=== PATIENT | male | born 1950 | race Caucasian/White ===

== ENCOUNTER 2020-08-06 16:21 | Observation (INO) ==
[2020-08-06] MEDS ORDERED: Naloxone 0.4 MG/ML INJ IVP PRN (18:08)
[2020-08-06] MEDS ORDERED: *HR* Dextrose 50 % in Water (Vial) 50 ML VIAL IVP PRN (18:10)
[2020-08-06] MEDS ORDERED: Dextrose Gel 15 GM/37.5 ML TUBE PO PRN ×2 (18:10)
[2020-08-06] MEDS ORDERED: D5% in Water 1,000 ML IVC PRN (18:10)
[2020-08-06] MEDS ORDERED: Perflutren Lipid Microsphere 1.3 ML in 0.9 % Sodium Chloride 8.7 ML IVP PRN (18:11)
[2020-08-06] MEDS ORDERED: 0.9 % Sodium Chloride 500 ML IVC SCH (18:30)
[2020-08-06] MEDS ORDERED: MOM Conc 10 ML UD.LIQ PO PRN (20:48)
[2020-08-06] MEDS: rOPINIRole 0.25 MG TABLET PO SCH (23:32)
[2020-08-06] MEDS: Famotidine 20 MG TABLET PO SCH (23:32)
[2020-08-06] MEDS: Gabapentin 100 MG CAPSULE PO SCH (23:32)
[2020-08-06] MEDS: Aspirin Enteric Coated 81 MG Tablet PO SCH (23:32)
[2020-08-07 02:58] LABS: Basophils % 0.4 %; Eosinophils # 0.1 K/mcL (0.0-0.6); Eosinophils % 1.5 %; Hematocrit 34.3 % (37.5-50.1); Hemoglobin 11.1 g/dL (12.9-16.9); Immature Granulocytes % 0.2 % (0-4); Lymphocytes # 2.1 K/mcL (0.6-4.6); Lymphocytes % 38.9 %; Mean Corpuscular HGB Conc 32.4 g/dL (31.6-35.5); Mean Corpuscular Hemoglobin 30.1 pg (28.0-33.3); Mean Platelet Volume 8.8 fL (9.4-12.4); Monocytes # 0.5 K/mcL (0.0-1.3); Monocytes % 9.8 %; Neutrophils # 2.6 K/mcL (1.6-8.9); Platelet Count 155 K/mcL (140-400); Red Blood Count 3.69 M/mcL (4.19-5.50); Segmented Neutrophils % 49.2 %; White Blood Count 5.3 K/mcL (4.3-11.1)
[2020-08-07 04:47] LABS: BUN/Creatinine Ratio 16 (6-26); Blood Urea Nitrogen 21 mg/dL (8-23); Calcium 8.9 mg/dL (8.6-10.3); Carbon Dioxide 21 mEq/L (23-29); Chloride 108 mEq/L (98-107); Glucose 122 mg/dL (70-105); Osmolality,Calculated 294 (280-300); Potassium 4.3 mEq/L (3.5-5.1); Sodium 140 mEq/L (136-145); eGFR For African Americans > 60 (> 60); eGFR For Non-African Americans 55 (> 60)
[2020-08-07 05:32] LABS: Troponin I 0.03 ng/mL (< 0.04)
[2020-08-07] MEDS: Insulin LISPRO 300 UNITS/3 ML VIAL SUBQ SCH ×3 (07:25→16:06)
[2020-08-07] MEDS: lisinopriL 5 MG TABLET PO SCH (08:44)
[2020-08-07] MEDS: Famotidine 20 MG TABLET PO SCH ×2 (08:45→20:15)
[2020-08-07] MEDS: Psyllium 1 PACKET POWD.PACK PO SCH (08:45)
[2020-08-07] MEDS: rOPINIRole 0.25 MG TABLET PO SCH ×2 (08:45→20:15)
[2020-08-07] MEDS: Cyanocobalamin (B-12) 1,000 MCG TABLET PO SCH (08:45)
[2020-08-07] MEDS: Gabapentin 100 MG CAPSULE PO SCH ×2 (08:45→20:15)
[2020-08-07 17:05] LABS: Amphetamine Screen,Urine Negative ng/mL (Cutoff=1000); Barbiturate Screen,Urine Negative ng/mL (Cutoff=200); Benzodiazepines Screen,Urine Negative ng/mL (Cutoff=200); Cannabinoid Screen,Urine Negative ng/mL (Cutoff = 50); Cocaine Screen,Urine Negative ng/mL (Cutoff= 300); Opiate Screen,Urine Negative ng/mL (Cutoff=300); Phencyclidine Screen,Urine Negative ng/mL (Cutoff=25)
[2020-08-07] MEDS: Aspirin Enteric Coated 81 MG Tablet PO SCH (20:15)
[2020-08-08] MEDS: Insulin LISPRO 300 UNITS/3 ML VIAL SUBQ SCH ×3 (08:10→16:56)
[2020-08-08] MEDS: Cyanocobalamin (B-12) 1,000 MCG TABLET PO SCH (08:15)
[2020-08-08] MEDS: Gabapentin 100 MG CAPSULE PO SCH ×2 (08:15→19:49)
[2020-08-08] MEDS: Famotidine 20 MG TABLET PO SCH ×2 (08:15→19:49)
[2020-08-08] MEDS: Psyllium 1 PACKET POWD.PACK PO SCH (08:16)
[2020-08-08] MEDS: rOPINIRole 0.25 MG TABLET PO SCH ×2 (08:16→19:49)
[2020-08-08] MEDS: lisinopriL 5 MG TABLET PO SCH (08:16)
[2020-08-08] MEDS: Aspirin Enteric Coated 81 MG Tablet PO SCH (19:49)
[2020-08-09] MEDS: Insulin LISPRO 300 UNITS/3 ML VIAL SUBQ SCH ×3 (07:32→16:52)
[2020-08-09] MEDS: rOPINIRole 0.25 MG TABLET PO SCH ×2 (07:43→19:37)
[2020-08-09] MEDS: Cyanocobalamin (B-12) 1,000 MCG TABLET PO SCH (07:43)
[2020-08-09] MEDS: Psyllium 1 PACKET POWD.PACK PO SCH (07:44)
[2020-08-09] MEDS: Gabapentin 100 MG CAPSULE PO SCH ×2 (07:44→19:37)
[2020-08-09] MEDS: lisinopriL 5 MG TABLET PO SCH (07:44)
[2020-08-09] MEDS: Famotidine 20 MG TABLET PO SCH ×2 (07:44→19:37)
[2020-08-09] MEDS: Aspirin Enteric Coated 81 MG Tablet PO SCH (19:37)
[2020-08-10] MEDS: Insulin LISPRO 300 UNITS/3 ML VIAL SUBQ SCH ×3 (07:14→16:18)
[2020-08-10] MEDS: Famotidine 20 MG TABLET PO SCH ×2 (07:48→19:54)
[2020-08-10] MEDS: lisinopriL 5 MG TABLET PO SCH (07:49)
[2020-08-10] MEDS: rOPINIRole 0.25 MG TABLET PO SCH ×2 (07:49→19:54)
[2020-08-10] MEDS: Gabapentin 100 MG CAPSULE PO SCH ×2 (07:50→19:54)
[2020-08-10] MEDS: Cyanocobalamin (B-12) 1,000 MCG TABLET PO SCH (07:50)
[2020-08-10] MEDS: Psyllium 1 PACKET POWD.PACK PO SCH (07:50)
[2020-08-10 15:05] LABS: Adenovirus Not Detected (Not Detect); Coronavirus 229E Not Detected (Not Detect); Coronavirus HKU1 Not Detected (Not Detect); Coronavirus NL63 Not Detected (Not Detect); Coronavirus OC43 Not Detected (Not Detect); Human Metapneumovirus Not Detected (Not Detect); Human Rhinovirus/Enterovirus Not Detected (Not Detect); Influenza A Subtype 2009 H1 Not Detected (Not Detect); SARS-CoV-2 Not Detected (Not Detect)
[2020-08-10 15:06] LABS: Bordetella Pertussis Not Detected (Not Detect); Chlamydophila pneumoniae Not Detected (Not Detect); Influenza B Not Detected (Not Detect); Mycoplasma pneumoniae Not Detected (Not Detect); Parainfluenza Virus 1 Not Detected (Not Detect); Parainfluenza Virus 2 Not Detected (Not Detect); Parainfluenza Virus 3 Not Detected (Not Detect); Parainfluenza Virus 4 Not Detected (Not Detect); Respiratory Syncytial Virus Not Detected (Not Detect)
[2020-08-10] MEDS: Aspirin Enteric Coated 81 MG Tablet PO SCH (19:54)
[2020-08-11 06:59] VITALS: BP 120/70
[2020-08-11] MEDS: Famotidine 20 MG TABLET PO SCH (09:02)
[2020-08-11] MEDS: rOPINIRole 0.25 MG TABLET PO SCH (09:02)
[2020-08-11] MEDS: Cyanocobalamin (B-12) 1,000 MCG TABLET PO SCH (09:02)
[2020-08-11] MEDS: Gabapentin 100 MG CAPSULE PO SCH (09:02)
[2020-08-11] MEDS: lisinopriL 5 MG TABLET PO SCH (09:02)
[2020-08-11] MEDS: Psyllium 1 PACKET POWD.PACK PO SCH (09:03)
[2020-08-11] MEDS: Insulin LISPRO 300 UNITS/3 ML VIAL SUBQ SCH (09:03)
[2020-08-11] MEDS ORDERED: carvediloL 6.25 MG TABLET PO SCH (17:00)
== END 2020-08-11 11:01 ==
LOC: 3BNU 16:21 → EMEROOARM 16:21 → SUATTDRO 17:42 → 3BNU 18:17
PROVIDERS: ADMIT Internal Medicine; ATTEND Registered Nurse

== ENCOUNTER 2021-01-27 17:13 | Inpatient (IN) ==
[2021-01-27] MEDS ORDERED: Isovue-370 500 ML BOTTLE IVP ONE (17:24)
[2021-01-27 17:45] LABS: Hematocrit 39.5 % (37.5-50.1); Hemoglobin 12.9 g/dL (12.9-16.9); Mean Corpuscular HGB Conc 32.7 g/dL (31.6-35.5); Mean Corpuscular Hemoglobin 30.4 pg (28.0-33.3); Mean Corpuscular Volume 93.2 fL (83.0-100.0); Mean Platelet Volume 8.8 fL (9.4-12.4); Platelet Count 212 K/mcL (140-400); Red Blood Count 4.24 M/mcL (4.19-5.50); Red Cell Distribution Width 12.8 % (11.5-14.5); White Blood Count 6.5 K/mcL (4.3-11.1)
[2021-01-27 17:54] LABS: INR 1.2; Prothrombin Time 13.1 Seconds (9.4-12.1)
[2021-01-27 17:57] LABS: Activated Partial Thrombo Time 41.5 Seconds (26.0-36.0)
[2021-01-27 18:21] LABS: BUN/Creatinine Ratio 17 (6-26); Blood Urea Nitrogen 21 mg/dL (8-23); Calcium 8.9 mg/dL (8.6-10.3); Carbon Dioxide 29 mEq/L (23-29); Chloride 101 mEq/L (98-107); Creatine Kinase 38 Units/L (30-223); Ethanol < 10 mg/dL (Less than 10); Glucose 141 mg/dL (70-105); Osmolality,Calculated 285 (280-300); Potassium 4.5 mEq/L (3.5-5.1); Sodium 135 mEq/L (136-145); eGFR For African Americans > 60 (> 60); eGFR For Non-African Americans 57 (> 60)
[2021-01-27 19:26] LABS: Troponin I < 0.03 ng/mL (< 0.04)
[2021-01-27 19:27] LABS: Influenza A PCR Negative (Negative); Influenza B PCR Negative (Negative); Resp. Syncytial Virus PCR Negative (Negative)
[2021-01-27 19:28] LABS: SARS-CoV-2 by PCR (In House) Negative (Negative)
[2021-01-27 19:37] LABS: Bilirubin,Urine Negative (Negative); Blood,Urine Small (Negative); Clarity,Urine Clear (Clear); Color,Urine Yellow (Yellow); Glucose,Urine (UA) Normal (Normal); Ketones,Urine Negative (Negative); Leukocyte Esterase,Urine Negative (Negative); Nitrite,Urine Negative (Negative); Protein,Urine Negative (Neg-Trace); Urobilinogen,Urine Normal (Normal)
[2021-01-27 19:42] LABS: Mucus,Urine Few per lpf (None-Few); RBC,Urine 0-3 per hpf (0-3); WBC,Urine 0-3 per hpf (0-3)
[2021-01-27] MEDS ORDERED: Naloxone 0.4 MG/ML INJ IVP PRN (19:52)
[2021-01-27] MEDS ORDERED: Gadolinium Contrast Agent (WT Based) IV PRN (19:57)
[2021-01-27] MEDS ORDERED: 0.9 % Sodium Chloride 1,000 ML IVC SCH (20:00)
[2021-01-27] MEDS ORDERED: *HR* OxyCODONE Immed Rel 5 MG TABLET PO PRN (20:04)
[2021-01-27] MEDS ORDERED: *HR* HYDROcodone/Acet 5/325 mg TABLET PO PRN (20:04)
[2021-01-27] MEDS ORDERED: Acetaminophen 325 MG TABLET PO PRN (20:04)
[2021-01-27] MEDS ORDERED: Melatonin 3 MG TABLET PO PRN (20:04)
[2021-01-27] MEDS ORDERED: Ondansetron ODT 4 MG TAB.RAPDIS SL PRN (20:04)
[2021-01-27] MEDS: atenoloL 25 MG TABLET PO SCH (21:06)
[2021-01-27] MEDS: lisinopriL 10 MG TABLET PO SCH (21:08)
[2021-01-28 02:30] LABS: INR 1.2; Prothrombin Time 13.7 Seconds (9.4-12.1)
[2021-01-28 02:42] LABS: Alanine Aminotransferase 5 Units/L (7-52); Albumin/Globulin Ratio 1.7 (1.1-2.2); Alkaline Phosphatase 74 Units/L (34-104); Aspartate Amino Transferase 11 Units/L (13-39); BUN/Creatinine Ratio 15 (6-26); Bilirubin,Total 0.3 mg/dL (0.3-1.0); Blood Urea Nitrogen 18 mg/dL (8-23); Calcium 9.4 mg/dL (8.6-10.3); Carbon Dioxide 26 mEq/L (23-29); Chloride 105 mEq/L (98-107); Chol/HDL Ratio 2.1 (0-4.9); Cholesterol 80 mg/dL (< 200); Globulin 2.4 g/dL (2.4-3.5); Glucose 96 mg/dL (70-105); HDL Cholesterol 38 mg/dL (40-59); LDL Cholesterol,Calculated 32 mg/dL (< 100); Osmolality,Calculated 288 (280-300); Potassium 4.2 mEq/L (3.5-5.1); Sodium 138 mEq/L (136-145); Total Protein 6.4 g/dL (6.4-8.9); Triglycerides 48 mg/dL (< 150); Troponin I < 0.03 ng/mL (< 0.04); eGFR For African Americans > 60 (> 60); eGFR For Non-African Americans 60 (> 60)
[2021-01-28] MEDS: Aspirin Enteric Coated 81 MG Tablet PO SCH (08:21)
[2021-01-28] MEDS: lisinopriL 10 MG TABLET PO SCH (08:21)
[2021-01-28] MEDS: atenoloL 25 MG TABLET PO SCH (08:21)
[2021-01-28 08:45] LABS: Estimated Average Glucose 134 mg/dl; Hemoglobin A1C 6.3 %
[2021-01-28] MEDS ORDERED: D5% in Water 1,000 ML IVC PRN (12:16)
[2021-01-28] MEDS ORDERED: *HR* Dextrose 50 % in Water (Syg) 50 ML SYRINGE IVP PRN (12:16)
[2021-01-28] MEDS ORDERED: Dextrose Gel 15 GM/37.5 ML TUBE PO PRN ×2 (12:16)
[2021-01-28 13:17] LABS: Thyroid Stimulating Hormone 1.878 mcIU/mL (0.340-5.600)
[2021-01-28] MEDS: *HR* Heparin 5,000 UNIT/ML VIAL SQ SCH ×2 (13:57→20:05)
[2021-01-28] MEDS ORDERED: Haloperidol Lactate 5 MG/ML VIAL IVP ONE (14:27)
[2021-01-28] MEDS: Insulin LISPRO 300 UNITS/3 ML VIAL SUBQ SCH (16:10)
[2021-01-29] MEDS: *HR* Heparin 5,000 UNIT/ML VIAL SQ SCH ×3 (05:08→20:26)
[2021-01-29] MEDS: Insulin LISPRO 300 UNITS/3 ML VIAL SUBQ SCH ×3 (07:14→17:05)
[2021-01-29] MEDS: atenoloL 25 MG TABLET PO SCH (07:59)
[2021-01-29] MEDS: Aspirin Enteric Coated 81 MG Tablet PO SCH (07:59)
[2021-01-29] MEDS: lisinopriL 10 MG TABLET PO SCH (08:00)
[2021-01-29] MEDS ORDERED: Perflutren Lipid Microsphere 1.3 ML in 0.9 % Sodium Chloride 8.7 ML IVP PRN (11:10)
[2021-01-30] MEDS: *HR* Heparin 5,000 UNIT/ML VIAL SQ SCH ×3 (05:21→22:11)
[2021-01-30] MEDS: Aspirin Enteric Coated 81 MG Tablet PO SCH (07:38)
[2021-01-30] MEDS: lisinopriL 10 MG TABLET PO SCH (07:38)
[2021-01-30] MEDS: atenoloL 25 MG TABLET PO SCH (07:38)
[2021-01-30] MEDS: Insulin LISPRO 300 UNITS/3 ML VIAL SUBQ SCH ×3 (08:06→16:25)
[2021-01-31] MEDS: *HR* Heparin 5,000 UNIT/ML VIAL SQ SCH ×3 (05:30→20:54)
[2021-01-31] MEDS: Insulin LISPRO 300 UNITS/3 ML VIAL SUBQ SCH ×3 (07:37→16:26)
[2021-01-31] MEDS: lisinopriL 10 MG TABLET PO SCH (08:33)
[2021-01-31] MEDS: atenoloL 25 MG TABLET PO SCH (08:33)
[2021-01-31] MEDS: Aspirin Enteric Coated 81 MG Tablet PO SCH (08:33)
[2021-01-31] MEDS: Gabapentin 100 MG CAPSULE PO SCH (20:53)
[2021-01-31] MEDS ORDERED: rOPINIRole 0.25 MG TABLET PO SCH (21:00)
[2021-02-01] MEDS: *HR* Heparin 5,000 UNIT/ML VIAL SQ SCH (06:10)
[2021-02-01 07:45] VITALS: BP 146/77; PULSE 42; TEMP 97.9; O2SAT 96
[2021-02-01] MEDS: Insulin LISPRO 300 UNITS/3 ML VIAL SUBQ SCH ×2 (07:46→12:18)
[2021-02-01] MEDS: Aspirin Enteric Coated 81 MG Tablet PO SCH (08:07)
[2021-02-01] MEDS: lisinopriL 10 MG TABLET PO SCH (08:08)
[2021-02-01] MEDS: Gabapentin 100 MG CAPSULE PO SCH (08:08)
[2021-02-01] MEDS ORDERED: atenoloL 25 MG TABLET PO SCH (09:00)
[2021-02-01 11:49] LABS: Influenza A PCR Negative (Negative); Influenza B PCR Negative (Negative); Resp. Syncytial Virus PCR Negative (Negative)
[2021-02-01 11:51] LABS: SARS-CoV-2 by PCR (In House) Negative (Negative)
== END 2021-02-01 13:15 | DRG 56 ==
LOC: EMEROOARM 17:13 → 3BNU 17:13 → SUATTDRO 20:07 → 3BNU 20:40 → SUATTDRO 01-30 13:20
PROVIDERS: ADMIT Internal Medicine; ATTEND Internal Medicine